=== PATIENT | male | born 1945 | race Caucasian/White ===

== ENCOUNTER 2021-06-28 13:01 | Emergency (ER) | payer MEDICARE, OTHER ==
[~2021-06-28] VITALS: Ht 162.6 cm; Wt 65.3 kg
[2021-06-28] MEDS ORDERED: IV NORMAL SALINE 1000 ML BAG IV ONE (13:15)
[2021-06-28 13:29] LABS: CARBON DIOXIDE 27 mmol/L (21-32); CHLORIDE 106 mmol/L (98-107); CREATININE 1.3 mg/dL (0.6-1.3); GLUCOSE 110 mg/dL (74-106); POTASSIUM 3.9 mmol/L (3.5-5.1); UREA NITROGEN, BLOOD 32 mg/dL (7-18)
[2021-06-28 13:30] LABS: HEMATOCRIT 37.3 % (36.7-47.1); MEAN CORPUSCULAR HEMOGLOBIN 31.2 uug (23.8-33.4); MEAN CORPUSCULAR VOLUME 92.1 fL (73.0-96.2); PLATELET COUNT (AUTO) 210 K/uL (152-348)
[2021-06-28 13:44] LABS: ALANINE AMINOTRANSFERASE 6 U/L (16-63); ALKALINE PHOSPHATASE 63 U/L (50-136); ASPARTATE AMINOTRANSFERASE 11 U/L (15-37); BILIRUBIN,DIRECT 0.1 mg/dL (0.0-0.2); BILIRUBIN,TOTAL 0.4 mg/dL (0.2-1.0)
[2021-06-28] MEDS ORDERED: CLOP75TA15 PO (13:47)
[2021-06-28] MEDS ORDERED: NITR0.4T48 SL (13:47)
[2021-06-28] MEDS ORDERED: TAMS-3 PO (13:47)
[2021-06-28] MEDS ORDERED: DOCU-141 PO (13:47)
[2021-06-28] MEDS ORDERED: ATOR10TA PO (13:47)
[2021-06-28] MEDS ORDERED: ACET-2154 PO (13:47)
[2021-06-28] MEDS ORDERED: ALBU18HF2 INH (13:47)
[2021-06-28] MEDS ORDERED: VOLTAREN GEL TP (13:47)
[2021-06-28] MEDS ORDERED: ISOS30TA86 PO (13:47)
[2021-06-28] MEDS ORDERED: MELA5TAB PO (13:47)
[2021-06-28] MEDS ORDERED: CARB1TAB24 PO (13:47)
--- NOTE | 2021-06-28 14:29 | NUR ---
pt requesting lunch. oked. pt's daughter at bedside helping pt with food. pt says that he feels better.
--- NOTE | 2021-06-28 15:00 | NUR ---
PT'S DAUGHTER COMMUNICATING REGARDING THE TRANSFER TO [facility] WHERE PT'S OWN PRIMARY DR. CROWE AND INFORMATION TECHNOLOGY ACCOUNT MANAGER, DR. FLOWER HAVE PREVILEGES.
--- NOTE | 2021-06-28 15:10 | NUR ---
Patient does not wish to proceed with medical care recommended by Dr. Treasure BAPTISTE). Patient given information related to possible complications, up to and including , which could occur as a result of leaving the hospital at this time. Patient verbalizes understanding of risks involved due to leaving against medical advice. Patient has signed AMA form. PT ACCOMPANIED BY DAUGHTER. A COPY OF ALL THE STUDIES PROVIDED FOR PT FOR FOLLOW UP.
[2021-06-28 15:31] VITALS: BP 126/77
== END 2021-06-28 15:10 | disposition left against medical advice (07) ==
LOC: ER 13:01
DX: I95.1 Orthostatic hypotension (principal); E86.0 Dehydration; G20 Parkinson's disease; I25.10 Atherosclerotic heart disease of native coronary artery without angina pectoris; Z95.5 Presence of coronary angioplasty implant and graft; Z79.02 Long term (current) use of antithrombotics/antiplatelets; Z79.899 Other long term (current) drug therapy; Z20.822 Contact with and (suspected) exposure to COVID-19; R94.31 Abnormal electrocardiogram [ECG] [EKG]
CPT/HCPCS: 36415; 70450; 71045; 84484; 85025; 85730; 93005; A4663; J7030